=== PATIENT | female | born 1990 | race Native Hawaiian/Other Pacific Islander ===

== ENCOUNTER 2017-12-24 22:48 | Emergency (ER) | payer SELFPAY ==
[2017-12-24 22:54] VITALS: RESP 16
[2017-12-24] MEDS ORDERED: Sodium Chloride 0.9% 1,000 ML IV STA (23:03)
--- NOTE | 2017-12-24 23:07 | C.PDOC ---
History Of Present Illness 27 y/o female presents to the ED with sudden onset of epigastric pain 6 hours ago. Denies current menstrual cycle or . No nausea, vomiting, diarrhea , or fever. Patient has not taken any over the counter medication for symptom relief. Time Seen by Provider: 12/24/17 22:58 Chief Complaint (Nursing): Abdominal Pain History Per: Patient History/Exam Limitations: no limitations Onset/Duration Of Symptoms: Hrs (x6) Current Symptoms Are (Timing): Still Present Location Of Pain/Discomfort: Epigastric Past Medical History Reviewed: Historical Data, Nursing Documentation, Vital Signs Vital Signs: Last Vital Signs Temp 97.5 F L 12/24/17 22:49 Pulse 68 12/24/17 22:49 Resp 16 12/24/17 22:49 BP 112/73 12/24/17 22:49 Pulse Ox 98 12/24/17 23:07 - Medical History PMH: No Chronic Diseases Surgical History: No Surg Hx Family History: States: No Known Family Hx - Social History Hx Tobacco Use: No Hx Alcohol Use: No Hx Substance Use: No Review Of Systems Except As Marked, All Systems Reviewed And Found Negative. Constitutional: Negative for: Fever, Chills Gastrointestinal: Positive for: Abdominal Pain. Negative for: Nausea, Vomiting , Diarrhea Genitourinary: Negative for: Dysuria, Vaginal Bleeding Physical Exam - Physical Exam Appears: Non-toxic, No Acute Distress, Other (Petite, thin woman) Skin: Normal Color, Warm, Dry Head: Atraumatic, Normacephalic Eye(s): bilateral: Normal Inspection, PERRL, EOMI Oral Mucosa: Moist Neck: Normal ROM, Supple Chest: Symmetrical Cardiovascular: Rhythm Regular, No Murmur Respiratory: Normal Breath Sounds, No Accessory Muscle Use Gastrointestinal/Abdominal: Bowel Sounds (Dull to percussion throughout), Soft, Tenderness (bilateral adnexal tenderness), No Guarding, No Rebound Extremity: Bilateral: Atraumatic, Normal Color And Temperature, Normal ROM Neurological/Psych: Oriented x3, Normal Speech ED Course And Treatment - Laboratory Results Result Diagrams: 12/24/17 23:27 12/24/17 23:27 Lab Interpretation: Normal (ua neg.) Urine POC: Negative O2 Sat by Pulse Oximetry: 98 (RA) Pulse Ox Interpretation: Normal - Radiology CXR: Interpreted by Me CXR Interpretation: Yes: No Acute Disease - Other Rad abd x 2 X-Ray: Interpreted by Me (+FOS, no obst) Progress Note: pepcid, toradol, zofran, IVF Reevaluation Time: 00:29 Reassessment Condition: Improved (ambulating with normal painless gait) Medical Decision Making Medical Decision Making: Impression: 27 y/o female with epigastric pain Initial Plan: * Blood work * Urinalysis * Urine HCG, qualitative * X-ray obstructive series * NS IV fluid bolus * Toradol 30 mg IV * Reassessment Disposition Doctor Will See Patient In The: Office Counseled Patient/Family Regarding: Studies Performed, Diagnosis - Disposition Disposition: HOME/ ROUTINE Disposition Time: 00:29 Condition: GOOD Forms: [facility] (Pakistani) - Clinical Impression Clinical Impression: Colicky periumbilical abdominal pain - Scribe Statement The provider has reviewed the documentation as recorded by the Maryibdavid Deal Provider Attestation: All medical record entries made by the Maryibe were at my direction and personally dictated by me. I have reviewed the chart and agree that the record accurately reflects my personal performance of the history, physical exam, medical decision making, and the department course for this patient. I have also personally directed, reviewed, and agree with the discharge instructions and disposition.
[2017-12-24 23:32] LABS: BASO % 0.1 % (0.0-2.0); EOS # 0.1 K/uL (0.0-0.7); EOS % 0.5 % (0.0-4.0); HEMOGLOBIN 12.2 g/dL (11.0-16.0); LYMPH # 1.1 K/uL (1.0-4.3); LYMPH % 10.4 % (20.0-40.0); MEAN CELL VOLUME 90.1 fL (81.0-99.0); MEAN CORPUSCULAR HEMOGLOBIN 30.7 pg (27.0-31.0); MEAN CORPUSCULAR HGB CONC 34.1 g/dL (33.0-37.0); MEAN PLATELET VOLUME 7.7 fL (7.2-11.7); MONO # 0.6 K/uL (0.0-0.8); MONO % 5.4 % (0.0-10.0); NEUT # 8.9 K/uL (1.8-7.0); NEUT % 83.6 % (50.0-75.0); RBC 3.98 Mil/uL (3.80-5.20); WHITE BLOOD COUNT 10.6 K/uL (4.8-10.8)
[2017-12-24 23:33] LABS: SQUAMOUS EPITHIAL 2 /hpf (0-5); URINE BACTERIA RARE (<OCC); URINE BILIRUBIN NEGATIVE (NEGATIVE); URINE BLOOD NEGATIVE (NEGATIVE); URINE CLARITY Clear (Clear); URINE COLOR Straw (YELLOW); URINE GLUCOSE (UA) NORMAL (Normal); URINE LEUKOCYTE ESTERASE NEG Leu/uL (Negative); URINE PROTEIN NEGATIVE (NEGATIVE); URINE UROBILINOGEN NORMAL mg/dL (0.2-1.0)
[2017-12-24 23:37] LABS: HCG,QUALITATIVE URINE NEGATIVE (NEGATIVE)
[2017-12-24 23:44] LABS: ALB/GLOB RATIO 1.1 (1.0-2.1); ALBUMIN 4.1 g/dL (3.5-5.0); ALT/SGPT 15 U/L (9-52); AST/SGOT 21 U/L (14-36); BLOOD UREA NITROGEN 12 mg/dL (7-17); CALCIUM 9.1 mg/dl (8.6-10.4); GFR AFRICAN-AMERICAN > 60; GFR NON-AFRICAN AMERICAN > 60; LIPASE 99 U/L (23-300)
[2017-12-25 00:51] VITALS: BP 110/68; PULSE 72; TEMP 98; O2SAT 97
--- NOTE | 2017-12-25 08:25 | RAD ---
Abdomen four views History: Abdominal pain. Comparison: None available. Findings: Relative paucity of small bowel gas. Air seen within the stomach. Moderate fecal retention in the colon. Lung woodard are grossly clear. Minimal right apical pleural thickening. Bibasilar breast and nipple shadows. Impression: Moderate fecal retention in the colon.
== END 2017-12-25 00:49 | disposition home or self-care (01) ==
LOC: C.ER 22:48
DX: R10.33 Periumbilical pain (principal)
CPT/HCPCS: 74022; 80053; 81001; 83690; 84703; 85025; 96374; 99285; J1885; J7040

== ENCOUNTER 2018-08-28 03:56 | Inpatient (IN) | payer OTHER ==
--- NOTE | 2018-08-28 04:10 | C.PDOC ---
History Of Present Illness Patient presents wit nausea , vomiting and abdominal pain, after eating out. Not tolerating po. No diarrhea. Dull., cramping abdominal discomfort Time Seen by Provider: 08/28/18 04:10 Chief Complaint (Nursing): Abdominal Pain History Per: Patient History/Exam Limitations: no limitations Onset/Duration Of Symptoms: Hrs Current Symptoms Are (Timing): Still Present Context: Food Severity: Moderate Pain Scale Rating Of: 5 Location Of Pain/Discomfort: Diffuse Radiation Of Pain To:: None Quality Of Discomfort: Dull, Cramping Associated Symptoms: Nausea, Vomiting. denies: Diarrhea Exacerbating Factors: None Alleviating Factors: None Last Bowel Movement: Today Recent travel outside of the [place]: No Additional History Per: Family Abnormal Vaginal Bleeding: No Past Medical History Reviewed: Historical Data, Nursing Documentation, Vital Signs Vital Signs: Last Vital Signs Temp 97.9 F 08/28/18 04:00 Pulse 78 08/28/18 04:00 Resp 18 08/28/18 04:00 BP 109/74 08/28/18 04:00 Pulse Ox 97 08/28/18 04:00 Family History: States: No Known Family Hx - Social History Hx Tobacco Use: No Hx Alcohol Use: No Hx Substance Use: No Review Of Systems Constitutional: Negative for: Fever, Chills Respiratory: Negative for: Shortness of Breath Gastrointestinal: Positive for: Nausea, Vomiting, Abdominal Pain Genitourinary: Negative for: Dysuria Musculoskeletal: Negative for: Back Pain Skin: Negative for: Rash Neurological: Negative for: Weakness Psych: Negative for: Anxiety Physical Exam - Physical Exam Appears: Non-toxic Skin: Warm, Dry Oral Mucosa: Dry Neck: Supple Gastrointestinal/Abdominal: Bowel Sounds (tympanic to percussion), Soft, T enderness (rlq), No Distention, No Guarding, No Rebound Back: Normal Inspection Extremity: Normal ROM Extremity: Bilateral: Atraumatic Neurological/Psych: Oriented x3 Gait: Steady ED Course And Treatment - Laboratory Results Result Diagrams: 08/28/18 04:26 08/28/18 04:26 O2 Sat by Pulse Oximetry: 97 Pulse Ox Interpretation: Normal Disposition Discussed With : Nabil Narayanan Comment: accepted the [facility] is service and took over the care at 6:40 AM Doctor Will See Patient In The: ED Counseled Patient/Family Regarding: Studies Performed, Diagnosis - Disposition Disposition: HOSPITALIZED Disposition Time: 04:10 Condition: FAIR Forms: [facility] (Cook Islander) - POA Present On Arrival: None - Clinical Impression Clinical Impression: Acute appendicitis Decision To Admit - Pt Status Changed To: Hospital Disposition Of: Inpatient - Admit Certification Admit to Inpatient:: After my assessment, the patient will require hos pitalization for at least two midnights. This is because of the severity of symptoms shown, intensity of services needed, and/or the medical risk in this patient being treated as an outpatient. - InPatient: Physician Admission Certification:: After my assessment, the patient will require hospitalization for at least two midnights. This is because of the sev erity of symptoms shown, intensity of services needed, and/or the medical risk in this patient being treated as an outpatient. - . Bed Request Type: Regular Admitting Physician: Nabil Narayanan Patient Diagnosis: Acute appendicitis
[2018-08-28] MEDS ORDERED: Sodium Chloride 0.9% 1,000 ML IV ONE (04:11)
[2018-08-28 04:15] LABS: HCG,QUALITATIVE URINE NEGATIVE (NEGATIVE)
[2018-08-28] MEDS ORDERED: Sodium Chloride 0.9% 1,000 ML ONE (04:18)
[2018-08-28 04:19] LABS: SQUAMOUS EPITHIAL 4 /hpf (0-5); URINE BACTERIA RARE (<OCC); URINE BILIRUBIN NEGATIVE (NEGATIVE); URINE BLOOD NEGATIVE (NEGATIVE); URINE CLARITY Clear (Clear); URINE COLOR Yellow (YELLOW); URINE GLUCOSE (UA) NORMAL (Normal); URINE LEUKOCYTE ESTERASE TRACE Leu/uL (Negative); URINE PROTEIN NEGATIVE (NEGATIVE); URINE UROBILINOGEN NORMAL mg/dL (0.2-1.0)
[2018-08-28 04:30] LABS: BASO % 0.2 % (0.0-2.0); EOS % 0.1 % (0.0-4.0); HEMOGLOBIN 13.1 g/dL (11.0-16.0); LYMPH # 0.6 K/uL (1.0-4.3); LYMPH % 5.4 % (20.0-40.0); MEAN CELL VOLUME 88.9 fL (81.0-99.0); MEAN CORPUSCULAR HEMOGLOBIN 29.4 pg (27.0-31.0); MEAN CORPUSCULAR HGB CONC 33.1 g/dL (33.0-37.0); MEAN PLATELET VOLUME 7.8 fL (7.2-11.7); MONO # 0.8 K/uL (0.0-0.8); MONO % 6.6 % (0.0-10.0); NEUT # 10.5 K/uL (1.8-7.0); NEUT % 87.7 % (50.0-75.0); PLATELET COUNT 240 K/uL (130-400); RBC 4.46 Mil/uL (3.80-5.20); RED CELL DISTRIBUTION WIDTH 13.5 % (11.5-14.5); WHITE BLOOD COUNT 11.9 K/uL (4.8-10.8)
[2018-08-28 04:42] LABS: ALB/GLOB RATIO 1.5 (1.0-2.1); ALT/SGPT 22 U/L (9-52); AST/SGOT 20 U/L (14-36); BLOOD UREA NITROGEN 16 mg/dL (7-17); CALCIUM 8.5 mg/dl (8.6-10.4); GFR NON-AFRICAN AMERICAN > 60; LIPASE 104 U/L (23-300)
[2018-08-28] MEDS ORDERED: Iodixanol 320 MG/ML 100 ML BOTTLE IV ONE (05:15)
[2018-08-28 05:28] LABS: BANDS 2 % (0-2); LYMPHOCYTE 5 % (20-40); MONOCYTE 5 % (0-10); NEUTROPHIL 84 % (50-75); PLATELET ESTIMATE NORMAL (NORMAL); REACTIVE LYMPHOCYTES 4 % (0-0); TOTAL CELLS COUNTED 100
[2018-08-28] MEDS ORDERED: Piperacillin/Tazobact 3.375 gm 100 ML IVPB STA (06:32)
[2018-08-28] MEDS ORDERED: Piperacillin/Tazobact 3.375 gm 100 ML IVPB ONE (06:39)
--- NOTE | 2018-08-28 09:38 | CT ---
CT abdomen and pelvis HISTORY: Right lower quadrant pain. TECHNIQUE: Multiple contiguous axial images were performed through the abdomen and pelvis with the use of intravenous contrast. Subsequently, sagittal and coronal reformatted images were obtained. This CT exam was performed using one or more of the following dose reduction techniques: Automated exposure control, adjustment of the mA and/or kV according to patient size, and/or use of iterative reconstruction technique. Findings: 2 millimeter nodular density versus prominent pulmonary vessel at the anterior aspect of the right lower lobe on series 3, image 7. No pleural or pericardial effusion. Mild periportal edema. Gallbladder grossly preserved. Spleen is preserved. Adrenal glands are preserved. Pancreas is preserved. Upper abdominal bowel is grossly preserved. Right kidney: Mild fullness of the right renal collecting system. Left Kidney: Grossly preserved. Distended urinary bladder. Heterogeneous and prominent uterus as well as bilateral adnexa with moderate free fluid noted at the level of the right adnexa and posterior pelvic cul-de-sac. 2.5 centimeter follicle/corpus luteal cyst of the right ovary which may be partially ruptured given the adjacent free fluid. Moderate fecal retention in the colon. Mild thickening of the ascending colon. Appendix appears thickened and enhancing measuring up to 11 millimeters in width. Few shotty para-aortic nodes. Osseous structures are preserved. Impression: 1. Thickening and enhancement of the appendix concerning for acute appendicitis as described above. 2. Moderate amount of free fluid seen at the level the right adnexa as well as within the posterior pelvic cul-de-sac. 3. 2.5 centimeter follicle/corpus luteal cyst of the right ovary which may be partially ruptured given the adjacent free fluid. A preliminary report was generated at 6:30 a.m. on 08/28/[address] Jaaml Newman from [employer].
--- NOTE | 2018-08-28 10:15 | CP.PCM.HP ---
History of Present Illness - History of Present Illness History of Present Illness: Surgery H&P. Dr. Narayanan service 27yo F with no significant PMHx here for evaluation of abdominal pain. Pain started last night at approximately 11AM, located in the RLQ and associated with nausea and vomiting, nonbloody nonbilious. Pain does not radiate, described as dull and colicky. Denies ever having similar symptoms in the past. Denies any urinary complaints. No fevers or chills. No headaches. No Chest pain or shortness of breath. In ED, Patient obtained a CT Abd/pelvis with evidence of acute appendicitis and a ruptured ovarian cyst. PMHx: None PSHx: None Social Hx: Denies Tobacco, Denies ETOH use, Denies illicit drugs Family Hx: non-contributory NKDA Present on Admission - Present on Admission Any Indicators Present on Admission: No Review of Systems - Review of Systems All systems: reviewed and no additional remarkable complaints except - Constitutional Constitutional: absent: Chills, Fever - EENT Eyes: absent: Blurred Vision Ears: absent: Decreased Hearing, Ear Discharge - Cardiovascular Cardiovascular: absent: Chest Pain, Diaphoresis, Dyspnea - Respiratory Respiratory: absent: Cough, Dyspnea - Gastrointestinal Gastrointestinal: Abdominal Pain, Nausea, Vomiting. absent: Change in Stool Character, Coffee Ground Emesis, Diarrhea, Hematemesis, Hematochezia - Genitourinary Genitourinary: absent: Difficulty Urinating, Dysuria - Reproductive: Female Reproductive:Female: absent: Dysmenorrhea - Musculoskeletal Musculoskeletal: absent: Back Pain, Stiffness, Tingling - Integumentary Integumentary: absent: Changing Lesions - Psychiatric Psychiatric: absent: Anxiety Past Patient History - Past Medical History & Family History Past Medical History?: No Past Family History: Reviewed and not pertinent - Past Social History Smoking Status: Never Smoked Alcohol: None Drugs: Denies - PSYCHIATRIC Hx Substance Use: No - SURGICAL HISTORY Hx Surgeries: No - ANESTHESIA Hx Anesthesia: No Meds Allergies/Adverse Reactions: Allergies Allergy/AdvReac Type Severity Reaction Status Date / Time No Known Allergies Allergy Verified 08/28/18 04:06 Physical Exam - Constitutional Appears: Well, Non-toxic, No Acute Distress - Head Exam Head Exam: ATRAUMATIC, NORMAL INSPECTION, NORMOCEPHALIC - Eye Exam Eye Exam: EOMI, Normal appearance - ENT Exam ENT Exam: Mucous Membranes Moist - Respiratory Exam Respiratory Exam: NORMAL BREATHING PATTERN. absent: Accessory Muscle Use, Respiratory Distress - Cardiovascular Exam Cardiovascular Exam: absent: JVD - GI/Abdominal Exam GI & Abdominal Exam: Soft. absent: Distended, Firm, Guarding, Rebound, Rigid Additional comments: Tenderness to palpation RLQ - Extremities Exam Extremities exam: Positive for: normal inspection. Negative for: calf tenderness - Back Exam Back exam: NORMAL INSPECTION - Neurological Exam Neurological exam: Alert, Oriented x3 - Psychiatric Exam Psychiatric exam: Normal Affect, Normal Mood - Skin Skin Exam: Dry, Intact, Normal Color, Warm Results - Vital Signs Recent Vital Signs: Last Vital Signs Temp 98.5 F 08/28/18 09:10 Pulse 79 08/28/18 09:10 Resp 20 08/28/18 09:10 BP 98/54 L 08/28/18 09:10 Pulse Ox 97 08/28/18 09:10 - Labs Result Diagrams: 08/28/18 04:26 08/28/18 04:26 Labs: Laboratory Results - last 24 hr 08/28/18 08/28/18 08/28/18 04:12 04:26 04:26 WBC 11.9 H RBC 4.46 Hgb 13.1 Hct 39.6 MCV 88.9 MCH 29.4 MCHC 33.1 RDW 13.5 Plt Count 240 MPV 7.8 Neut % (Auto) 87.7 H Lymph % (Auto) 5.4 L [place] % (Auto) 6.6 Eos % (Auto) 0.1 Baso % (Auto) 0.2 Neut # (Auto) 10.5 H Lymph # (Auto) 0.6 L [place] # (Auto) 0.8 Eos # (Auto) 0.0 Baso # (Auto) 0.0 Neutrophils % (Manual) 84 H Band Neutrophils % 2 Lymphocytes % (Manual) 5 L Reactive Lymphs % 4 H Monocytes % (Manual) 5 Platelet Estimate Normal Sodium 139 Potassium 3.5 L Chloride 104 Carbon Dioxide 20 L Anion Gap 18 BUN 16 Creatinine 0.5 L Est GFR ( Amer) > 60 Est GFR (Non-Af Amer) > 60 Random Glucose 99 Calcium 8.5 L Total Bilirubin 0.9 AST 20 ALT 22 Alkaline Phosphatase 67 Total Protein 8.3 Albumin 5.0 D Globulin 3.3 Albumin/Globulin Ratio 1.5 Lipase 104 Urine Color Yellow Urine Clarity Clear Urine pH 6.0 Ur Specific [place] 1.028 Urine Protein Negative Urine Glucose (UA) Normal Urine Ketones 1+ H Urine Blood Negative Urine Nitrate Negative Urine Bilirubin Negative Urine Urobilinogen Normal Ur Leukocyte Esterase Trace Urine WBC (Auto) 1 Urine RBC (Auto) 1 Ur Squamous Epith Cells 4 Urine Bacteria Rare Urine HCG, Qual Negative Blood Type Antibody Screen 08/28/18 07:24 WBC RBC Hgb Hct MCV MCH MCHC RDW Plt Count MPV Neut % (Auto) Lymph % (Auto) [place] % (Auto) Eos % (Auto) Baso % (Auto) Neut # (Auto) Lymph # (Auto) [place] # (Auto) Eos # (Auto) Baso # (Auto) Neutrophils % (Manual) Band Neutrophils % Lymphocytes % (Manual) Reactive Lymphs % Monocytes % (Manual) Platelet Estimate Sodium Potassium Chloride Carbon Dioxide Anion Gap BUN Creatinine Est GFR ( Amer) Est GFR (Non-Af Amer) Random Glucose Calcium Total Bilirubin AST ALT Alkaline Phosphatase Total Protein Albumin Globulin Albumin/Globulin Ratio Lipase Urine Color Urine Clarity Urine pH Ur Specific [place] Urine Protein Urine Glucose (UA) Urine Ketones Urine Blood Urine Nitrate Urine Bilirubin Urine Urobilinogen Ur Leukocyte Esterase Urine WBC (Auto) Urine RBC (Auto) Ur Squamous Epith Cells Urine Bacteria Urine HCG, Qual Blood Type B POSITIVE Antibody Screen Negative Assessment & Plan - Assessment and Plan (Free Text) Assessment: 27yo F with appendicitis. Also with evidence of right ovarian cyst rupture Plan: - Snagger consult requested. Appreciate recs - f/u Transvaginal US as ordered - Will plan for OR pending no acute gynecology issues - Further recs following US findings and Snagger evaluation Further recs as per Dr. Lady Lopez PGY2 surgery
[2018-08-28] MEDS ORDERED: Potassium Chloride 20 mEq ER Tab PO ONE (10:21)
[2018-08-28] MEDS: Sodium Chloride 0.9% 1,000 ML IV SCH ×2 (10:55→21:04)
--- NOTE | 2018-08-28 13:15 | US ---
Date of service: 08/28/2018 HISTORY: ruptured ovarian cyst; last menstrual period reported 07/25/2018. COMPARISON: Abdomen pelvis CT with contrast 08/28/2018. TECHNIQUE: Transabdominal and transvaginal pelvic ultrasound was performed with longitudinal and transverse images submitted for interpretation. FINDINGS: UTERUS: Measures 8.8 x 4.0 x 4.9 cm. Normal in size and appearance. No fibroid or other mass lesion seen. ENDOMETRIUM: Measures 11.1 mm in diameter. Unremarkable. CERVIX: No cervical abnormality identified. RIGHT OVARY: Measures 3.6 x 1.8 x 2.7 cm. No solid mass. Normal flow. LEFT OVARY: Measures 2.2 x 1.7 x 2.5 cm. No solid mass. Normal flow. FREE FLUID: Trace fluid in the cul-de-sac is likely physiologic. OTHER FINDINGS: None. IMPRESSION: Unremarkable pelvic ultrasound. The amount of pelvic fluid seen in prior CT 08/28/2018 may have partially resolved is not clearly encountered in the current sonographic images submitted.
--- NOTE | 2018-08-28 13:53 | CP.PCM.CON ---
History of Present Illness - History of Present Illness History of Present Illness: 27 yo with right sided abdominal pain, + nausea, + vomiting, last BM yesterday, denies vaginal bleeding Review of Systems - Constitutional Constitutional: As Per HPI - Gastrointestinal Gastrointestinal: Abdominal Pain - Reproductive: Female Additional comments: declines vaginal bleeding Past Patient History - Past Medical History & Family History Past Medical History?: No - Past Social History Smoking Status: Never Smoked Alcohol: None Drugs: Denies - MUSCULOSKELETAL/RHEUMATOLOGICAL Hx Falls: No - GENITOURINARY/GYNECOLOGICAL LMP:: 07/29/18 - PSYCHIATRIC Hx Substance Use: No - SURGICAL HISTORY Hx Surgeries: No - ANESTHESIA Hx Anesthesia: No Hx Anesthesia Reactions: No Hx Malignant Hyperthermia: No Has any member of the family had a problem w/ anesthesia?: No Meds Allergies/Adverse Reactions: Allergies Allergy/AdvReac Type Severity Reaction Status Date / Time No Known Allergies Allergy Verified 08/28/18 04:06 - Medications Medications: Current Medications Sodium Chloride (Sodium Chloride 0.9%) 1,000 mls @ 100 mls/hr IV .Q10H ZULEYKA Last Admin: 08/28/18 10:55 Dose: 100 mls/hr Influenza Virus Vaccine (Fluzone Quad [id number]) 60 mcg IM .ONCE ONE Stop: 08/30/18 10:01 Morphine Sulfate (Morphine) 2 mg IVP Q6 PRN PRN Reason: Pain, moderate (4-7) Ondansetron HCl (Zofran Inj) 4 mg IVP Q6H PRN PRN Reason: Nausea/Vomiting Pneumococcal Polyvalent Vaccine (Pneumovax 23 Vaccine) 0.5 ml IM .ONCE ONE Stop: 08/30/18 10:01 Physical Exam - Constitutional Appears: Well, Non-toxic - GI/Abdominal Exam GI & Abdominal Exam: Tenderness Additional comments: mildly tender to palpation RLQ Results - Vital Signs Recent Vital Signs: Last Vital Signs Temp 98.5 F 08/28/18 09:10 Pulse 79 08/28/18 09:10 Resp 20 08/28/18 09:10 BP 98/54 L 08/28/18 09:10 Pulse Ox 97 08/28/18 09:10 - Labs Result Diagrams: 08/28/18 04:26 08/28/18 04:26 Labs: Laboratory Results - last 24 hr 08/28/18 08/28/18 08/28/18 04:12 04:26 04:26 WBC 11.9 H RBC 4.46 Hgb 13.1 Hct 39.6 MCV 88.9 MCH 29.4 MCHC 33.1 RDW 13.5 Plt Count 240 MPV 7.8 Neut % (Auto) 87.7 H Lymph % (Auto) 5.4 L [place] % (Auto) 6.6 Eos % (Auto) 0.1 Baso % (Auto) 0.2 Neut # (Auto) 10.5 H Lymph # (Auto) 0.6 L [place] # (Auto) 0.8 Eos # (Auto) 0.0 Baso # (Auto) 0.0 Neutrophils % (Manual) 84 H Band Neutrophils % 2 Lymphocytes % (Manual) 5 L Reactive Lymphs % 4 H Monocytes % (Manual) 5 Platelet Estimate Normal Sodium 139 Potassium 3.5 L Chloride 104 Carbon Dioxide 20 L Anion Gap 18 BUN 16 Creatinine 0.5 L Est GFR ( Amer) > 60 Est GFR (Non-Af Amer) > 60 Random Glucose 99 Calcium 8.5 L Total Bilirubin 0.9 AST 20 ALT 22 Alkaline Phosphatase 67 Total Protein 8.3 Albumin 5.0 D Globulin 3.3 Albumin/Globulin Ratio 1.5 Lipase 104 Urine Color Yellow Urine Clarity Clear Urine pH 6.0 Ur Specific [place] 1.028 Urine Protein Negative Urine Glucose (UA) Normal Urine Ketones 1+ H Urine Blood Negative Urine Nitrate Negative Urine Bilirubin Negative Urine Urobilinogen Normal Ur Leukocyte Esterase Trace Urine WBC (Auto) 1 Urine RBC (Auto) 1 Ur Squamous Epith Cells 4 Urine Bacteria Rare Urine HCG, Qual Negative Blood Type Antibody Screen 08/28/18 07:24 WBC RBC Hgb Hct MCV MCH MCHC RDW Plt Count MPV Neut % (Auto) Lymph % (Auto) [place] % (Auto) Eos % (Auto) Baso % (Auto) Neut # (Auto) Lymph # (Auto) [place] # (Auto) Eos # (Auto) Baso # (Auto) Neutrophils % (Manual) Band Neutrophils % Lymphocytes % (Manual) Reactive Lymphs % Monocytes % (Manual) Platelet Estimate Sodium Potassium Chloride Carbon Dioxide Anion Gap BUN Creatinine Est GFR ( Amer) Est GFR (Non-Af Amer) Random Glucose Calcium Total Bilirubin AST ALT Alkaline Phosphatase Total Protein Albumin Globulin Albumin/Globulin Ratio Lipase Urine Color Urine Clarity Urine pH Ur Specific [place] Urine Protein Urine Glucose (UA) Urine Ketones Urine Blood Urine Nitrate Urine Bilirubin Urine Urobilinogen Ur Leukocyte Esterase Urine WBC (Auto) Urine RBC (Auto) Ur Squamous Epith Cells Urine Bacteria Urine HCG, Qual Blood Type B POSITIVE Antibody Screen Negative Assessment & Plan - Assessment and Plan (Free Text) Assessment: 27 yo with abdominal pain - CT suggestive of appendictis, management as per surgical team - beta negative - pelvic US reviewed, normal uterus, normal ovaries with bilateral flow, physiologic fluid - no ASSEMBLER intervention required - recommend follow up with outpatient puff iron operator to establish well woman care
[2018-08-28] MEDS ORDERED: Midazolam 2 MG/2 ML VIAL ONE (16:03)
[2018-08-28] MEDS ORDERED: Propofol 10 mg/ml Inj (20 ML) ONE (16:03)
[2018-08-28] MEDS ORDERED: ceFAZolin IV 1 gm in Dextrose 1 GM/50 ML BAG IVPB ONE (16:13)
[2018-08-28] MEDS ORDERED: Bacitracin Ointment 30 GM TUBE ONE (16:13)
[2018-08-28] MEDS ORDERED: Lidocaine/Epinephrine 1% 1:100000 10 ML IJ ONE (16:14)
[2018-08-28] MEDS ORDERED: Rocuronium 10 mg/ml (5 ml) ONE (16:14)
[2018-08-28] MEDS ORDERED: Bupivacaine 0.25% 20 ML INJ IJ ONE (16:14)
[2018-08-28] MEDS ORDERED: ePHEDrine 50 mg/ml Inj ONE (16:20)
[2018-08-28] MEDS ORDERED: Neostigmine Methylsulfate 3mg/3ml Syringe IV ONE (17:24)
[2018-08-28] MEDS ORDERED: HYDROmorphone 0.5 mg/0.5 ml ISec IVP PRN (17:45)
[2018-08-28] MEDS ORDERED: Oxycodone/Acetaminophen 5/325 mg Tab PO PRN (17:46)
[2018-08-28] MEDS ORDERED: Morphine 4 MG/ML VIAL IVP PRN (17:47)
--- NOTE | 2018-08-28 17:50 | PCM.SURG1 ---
Surgeon's Initial Post Op Note - Surgeon's Notes Surgeon: Dr. Narayanan Medical Record Transcriber: Jessica PGY2 Type of Anesthesia: General Endo, Local Anesthesia Administered By: Dr. Noriega Pre-Operative Diagnosis: Acute Appendicitis Operative Findings: See operative report Post-Operative Diagnosis: same Operation Performed: Laparascopic Appendectomy Specimen/Specimens Removed: Appendix Estimated Blood Loss: EBL {In ML}: 5 Blood Products Given: N/A Drains Used: No Drains Post-Op Condition: Good Date of Surgery/Procedure: 08/28/18 Time of Surgery/Procedure: 17:50
[2018-08-28] MEDS ORDERED: HYDROmorphone 0.5 mg/0.5 ml ISec ONE (17:54)
[2018-08-28] MEDS: Piperacill/Tazo 3.375gm in Dex 3.375 GM/50 ML BAG IVPB SCH (21:02)
[2018-08-29] MEDS: Piperacill/Tazo 3.375gm in Dex 3.375 GM/50 ML BAG IVPB SCH ×3 (00:25→13:11)
[2018-08-29] MEDS ORDERED: Benzocaine/Menthol (Cepacol) Lozenge MT PRN (00:42)
[2018-08-29] MEDS ORDERED: Benzocaine/Menthol (Cepacol) Lozenge MT SCH (06:00)
--- NOTE | 2018-08-29 06:57 | OP ---
PROCEDURE DATE: 08/28/2018 PREOPERATIVE DIAGNOSIS: Acute appendicitis and leukocytosis. POSTOPERATIVE DIAGNOSES: 1. Acute suppurative appendicitis. 2. Pelvic collection and abscess. PROCEDURES: 1. Laparoscopic appendectomy. 2. Laparoscopic drainage of pelvic abscess. SURGEON: Nabil Narayanan MD. COPPER PLATE LITHOGRAPHER: Anthony Lopez DO. ANESTHESIA: General endotracheal tube anesthesia. ESTIMATED BLOOD LOSS: Around 10 mL. DRAINS: None. PATHOLOGY: Appendix was sent for the pathology. COMPLICATIONS: None. INTRAOPERATIVE FINDINGS: The patient had acute suppurative appendicitis with pelvic collection and the patient had a normal looking ovary bilaterally, and on intraoperative steps, this 27-year-old female was diagnosed with acute appendicitis and the patient was consented for laparoscopic appendectomy for followup and brought to the OR, placed supine on the operating table. After induction of the anesthesia, the abdomen was prepped and draped in the usual sterile fashion. The supraumbilical transverse incision was made using the Radha technique. Peritoneal cavity was entered and pneumo was created. Another two 5 mm port was placed in suprapubic and left lower quadrant, grasper and dissector were introduced, and the patient had pelvic abscess that was drained and appendix was identified. The mesoappendix was resected with a Harmonic scalpel. Base of the appendix was resected with a ALIYAH, and appendix was taken in the EndoCatch bag, taken out through the umbilical port site, and sent to the table for the pathology. There was a proper hemostasis in each and every part of the procedure. The pelvic abscess area was suction irrigated again and all the fluids were suctioned out from the pelvis and the periappendicular area, and after that, all the port was taken out under vision. Pneumo was deflated. The umbilical port site was closed in two layers, the fascia with 0 Vicryl interrupted suture, skin with 4-0 Monocryl at all the port sites, and dry sterile dressing was applied. The patient tolerated the procedure well. Count of instrument and gauze was correct. There was no apparent complication. The patient was extubated in OR, transferred to the Postanesthesia Care Unit in stable condition. Nabil Narayanan MD
[2018-08-29] MEDS: Sodium Chloride 0.9% 1,000 ML IV SCH (07:25)
[2018-08-29 07:54] VITALS: RESP 20
[2018-08-29 08:55] LABS: BASO % 0.2 % (0.0-2.0); EOS % 0.1 % (0.0-4.0); LYMPH # 1.1 K/uL (1.0-4.3); LYMPH % 13.8 % (20.0-40.0); MEAN CORPUSCULAR HEMOGLOBIN 30.9 pg (27.0-31.0); MEAN CORPUSCULAR HGB CONC 33.8 g/dL (33.0-37.0); MEAN PLATELET VOLUME 8.6 fL (7.2-11.7); MONO # 0.6 K/uL (0.0-0.8); NEUT # 6.1 K/uL (1.8-7.0); NEUT % 77.9 % (50.0-75.0); RBC 3.4 Mil/uL (3.80-5.20); RED CELL DISTRIBUTION WIDTH 13.7 % (11.5-14.5); WHITE BLOOD COUNT 7.8 K/uL (4.8-10.8)
[2018-08-29 08:57] LABS: HEMOGLOBIN 10.5 g/dL (11.0-16.0); MEAN CELL VOLUME 91.3 fL (81.0-99.0)
[2018-08-29 09:13] LABS: ALB/GLOB RATIO 1.1 (1.0-2.1); ALBUMIN 3.2 g/dL (3.5-5.0); ALT/SGPT 21 U/L (9-52); AST/SGOT 35 U/L (14-36); BLOOD UREA NITROGEN 7 mg/dL (7-17); CALCIUM 8.1 mg/dl (8.6-10.4); GFR NON-AFRICAN AMERICAN > 60
--- NOTE | 2018-08-29 10:42 | CP.PCM.DIS ---
Provider - Provider Date of Admission: 08/28/18 06:46 Attending physician: Nabil Narayanan MD Consults: 08/28/18 07:18 Physician Consult Routine Comment: Consulting Provider: Phyllis Poon Consulting Physician: Phyllis Poon Reason for Consult: Ruptured Ovarian Cyst Time Spent in preparation of Discharge (in minutes): 30 Diagnosis - Discharge Diagnosis (1) Acute appendicitis Status: Resolved Priority: High Hospital Course - Lab Results Lab Results: Micro Results 08/28/18 06:30 Blood-Venous Blood Culture - Preliminary NO GROWTH AFTER 24 HOURS 08/28/18 06:00 Blood-Venous Blood Culture - Preliminary NO GROWTH AFTER 24 HOURS Most Recent Lab Values WBC 7.8 K/uL (4.8-10.8) 08/29/18 08:33 RBC 3.40 Mil/uL (3.80-5.20) L 08/29/18 08:33 Hgb 10.5 g/dL (11.0-16.0) L D 08/29/18 08:33 Hct 31.0 % (34.0-47.0) L 08/29/18 08:33 MCV 91.3 fL (81.0-99.0) D 08/29/18 08:33 MCH 30.9 pg (27.0-31.0) 08/29/18 08:33 MCHC 33.8 g/dL (33.0-37.0) 08/29/18 08:33 RDW 13.7 % (11.5-14.5) 08/29/18 08:33 Plt Count 202 K/uL (130-400) 08/29/18 08:33 MPV 8.6 fL (7.2-11.7) 08/29/18 08:33 Neut % (Auto) 77.9 % (50.0-75.0) H 08/29/18 08:33 Lymph % (Auto) 13.8 % (20.0-40.0) L 08/29/18 08:33 [place] % (Auto) 8.0 % (0.0-10.0) 08/29/18 08:33 Eos % (Auto) 0.1 % (0.0-4.0) 08/29/18 08:33 Baso % (Auto) 0.2 % (0.0-2.0) 08/29/18 08:33 Neut # (Auto) 6.1 K/uL (1.8-7.0) 08/29/18 08:33 Lymph # (Auto) 1.1 K/uL (1.0-4.3) 08/29/18 08:33 [place] # (Auto) 0.6 K/uL (0.0-0.8) 08/29/18 08:33 Eos # (Auto) 0.0 K/uL (0.0-0.7) 08/29/18 08:33 Baso # (Auto) 0.0 K/uL (0.0-0.2) 08/29/18 08:33 Neutrophils % (Manual) 84 % (50-75) H 08/28/18 04:26 Band Neutrophils % 2 % (0-2) 08/28/18 04:26 Lymphocytes % (Manual) 5 % (20-40) L 08/28/18 04:26 Reactive Lymphs % 4 % (0-0) H 08/28/18 04:26 Monocytes % (Manual) 5 % (0-10) 08/28/18 04:26 Platelet Estimate Normal (NORMAL) 08/28/18 04:26 Sodium 136 mmol/L (132-148) 08/29/18 08:33 Potassium 3.6 mmol/L (3.6-5.2) 08/29/18 08:33 Chloride 105 mmol/L (98-107) 08/29/18 08:33 Carbon Dioxide 22 mmol/L (22-30) 08/29/18 08:33 Anion Gap 13 (10-20) 08/29/18 08:33 BUN 7 mg/dL (7-17) 08/29/18 08:33 Creatinine 0.6 mg/dL (0.7-1.2) L 08/29/18 08:33 Est GFR ( Amer) > 60 08/29/18 08:33 Est GFR (Non-Af Amer) > 60 08/29/18 08:33 Random Glucose 83 mg/dL (65-105) 08/29/18 08:33 Calcium 8.1 mg/dl (8.6-10.4) L 08/29/18 08:33 Phosphorus 3.8 mg/dL (2.5-4.5) 08/29/18 08:33 Magnesium 2.0 mg/dL (1.6-2.3) 08/29/18 08:33 Total Bilirubin 1.0 mg/dL (0.2-1.3) 08/29/18 08:33 AST 35 U/L (14-36) 08/29/18 08:33 ALT 21 U/L (9-52) 08/29/18 08:33 Alkaline Phosphatase 39 U/L (38-126) 08/29/18 08:33 Total Protein 6.2 g/dL (6.3-8.3) L 08/29/18 08:33 Albumin 3.2 g/dL (3.5-5.0) L D 08/29/18 08:33 Globulin 3.0 gm/dL (2.2-3.9) 08/29/18 08:33 Albumin/Globulin Ratio 1.1 (1.0-2.1) 08/29/18 08:33 Lipase 104 U/L (23-300) 08/28/18 04:26 Urine Color Yellow (YELLOW) 08/28/18 04:12 Urine Clarity Clear (Clear) 08/28/18 04:12 Urine pH 6.0 (5.0-8.0) 08/28/18 04:12 Ur Specific [place] 1.028 (1.003-1.030) 08/28/18 04:12 Urine Protein Negative mg/dL (NEGATIVE) 08/28/18 04:12 Urine Glucose (UA) Normal mg/dL (Normal) 08/28/18 04:12 Urine Ketones 1+ mg/dL (NEGATIVE) H 08/28/18 04:12 Urine Blood Negative (NEGATIVE) 08/28/18 04:12 Urine Nitrate Negative (NEGATIVE) 08/28/18 04:12 Urine Bilirubin Negative (NEGATIVE) 08/28/18 04:12 Urine Urobilinogen Normal mg/dL (0.2-1.0) 08/28/18 04:12 Ur Leukocyte Esterase Trace Alejandro/uL (Negative) 08/28/18 04:12 Urine WBC (Auto) 1 /hpf (0-5) 08/28/18 04:12 Urine RBC (Auto) 1 /hpf (0-3) 08/28/18 04:12 Ur Squamous Epith Cells 4 /hpf (0-5) 08/28/18 04:12 Urine Bacteria Rare (<OCC) 08/28/18 04:12 Urine HCG, Qual Negative (NEGATIVE) 08/28/18 04:12 Blood Type B POSITIVE 08/28/18 07:24 Antibody Screen Negative 08/28/18 07:24 - Hospital Course Hospital Course: 27yo Fpresented yesterday for evaluation of abdominal pain. Patient obtained a CT Abd/pelvis with evidence of acute appendicitis. [employer] consulted to rule out ruptured ovarian cyst which was not the issue. Pt went for laparoscopic appendectomy and did well. she was able to be discharged on POD #1 with PO flagyl Discharge Exam - Head Exam Head Exam: ATRAUMATIC, NORMAL INSPECTION, NORMOCEPHALIC - Eye Exam Eye Exam: EOMI. absent: Scleral icterus - ENT Exam ENT Exam: Mucous Membranes Moist - Neck Exam Neck exam: Full Rom - Respiratory Exam Respiratory Exam: NORMAL BREATHING PATTERN. absent: Respiratory Distress - Cardiovascular Exam Cardiovascular Exam: RRR, +S1, +S2 - GI/Abdominal Exam GI & Abdominal Exam: Soft, Tenderness (appropriate at incisions). absent: Distended, Firm, Guarding, Rebound, Rigid Additional comments: dressings C/D/I Discharge Plan - Follow Up Plan Condition: FAIR Disposition: HOME/ ROUTINE Instructions: Metronidazole (Systemic), Appendectomy, Laparoscopic Surgery (DC) Additional Instructions: Ok for DC DC on 1 week flagyl, cipro, toradol for pain Follow up in office in 1-2 weeks Call for fever more than 101 or pain uncontrolled by tylenol or motrin. Ok to shower, keep dressings dry. Outer dressings can come off in 3-4 days, leave inner dressings to fall off on their own Regular diet. Referrals: Nabil Narayanan MD [Staff Provider] -
[2018-08-29 16:20] VITALS: BP 91/45; PULSE 79; TEMP 98.4; O2SAT 96
[2018-08-30] MEDS ORDERED: Influenza Vaccine 60 MCG/0.5 ML SYR (3 yr & up) IM ONE (10:00)
[2018-08-30] MEDS ORDERED: Pneumococcal 23-Valent Vaccine IM ONE (10:00)
== END 2018-08-29 17:10 | disposition home or self-care (01) | DRG 225 ==
LOC: C.ER 03:56 → C.9E 06:46 → C.5S 07:26
PROVIDERS: ADMIT Surgery Surgical Critical Care; ATTEND Surgery Surgical Critical Care
PROC: 0D9J4ZX Drainage of Appendix, Percutaneous Endoscopic Approach, Diagnostic (ICD-10-PCS; 2018-08-28)
PROC: 0DTJ4ZZ Resection of Appendix, Percutaneous Endoscopic Approach (ICD-10-PCS; principal; 2018-08-28 17:30)
DX: K35.33 Acute appendicitis with perforation, localized peritonitis, and gangrene, with abscess (principal)